=== PATIENT | female | born 1975 ===

== ENCOUNTER 2019-01-26 09:34 | Emergency (ER) | payer MEDICAID, MEDICARE, OTHER ==
[2019-01-26 09:43] VITALS: BMI 22.8
[2019-01-26 09:54] VITALS: RESP 18; TEMP 97.7
--- NOTE | 2019-01-26 10:09 | ED PDOC ---
Arrival/HPI - General Chief Complaint: Abdominal Pain Historian: Patient - History of Present Illness Narrative History of Present Illness (Text): 01/26/19 09:56 43 y/o female, pmh including htn/hypothyroidism/PID with gonorrhea/CVA/fibroid/endometriosis/cervical cancer?/gastric sleeve surgery, nkda, c/o lower quadrant abdominal pain x 5 days. Pt. stated that her period started 01/12/19 and lasted til 01/19/2019, starting having the period again on the 01/21/2019 which ended on 01/23/2019, been having the lower quadrant abdominal pain for the past 5 days, lt. greater than right, admits foul vaginal discharge, stated that this pain is different than her usual pain, no fever or chills, admits nausea/vomiting with pain, no diarrhea, no recent traveling, no vaginal bleeding, no change in vision, no numbness or tingling, no other medical or psychological complaints. Past Medical History - Provider Review Nursing Documentation Reviewed: Yes - Infectious Disease Hx of Infectious Diseases: None - Cardiac Hx Cardiac Arrhythmia: Yes (palpitations) Hx Hypertension: Yes - Pulmonary Hx Respiratory Disorders: No - Neurological Hx Seizures: (denies 07/04/18) - HEENT Hx HEENT Disorder: No - Renal Hx Renal Disorder: No - Endocrine/Metabolic Hx Hypothyroidism: Yes - Hematological/Oncological Hx Anemia: Yes - Integumentary Hx Dermatological Disorder: No - Musculoskeletal/Rheumatological Hx Musculoskeletal Disorders: Yes - Gastrointestinal Hx Gastrointestinal Disorders: Yes Other/Comment: Gastric bypass. Gastric bypass perforation - Genitourinary/Gynecological Hx Genitourinary Disorders: No Other/Comment: Fibroids, Endometriosis - Psychiatric Hx Psychophysiologic Disorder: No Hx Substance Use: No - Surgical History Hx Section: Yes Hx Gastric Bypass Surgery: Yes (and gastric bypass perforation) - Anesthesia Hx Anesthesia: Yes Hx Anesthesia Reactions: No Hx Malignant Hyperthermia: No - Suicidal Assessment Feels Threatened In Home Enviroment: No Family/Social History - Physician Review Nursing Documentation Reviewed: Yes Family/Social History: Unknown Family HX Smoking Status: Never Smoked Hx Alcohol Use: No Hx Substance Use: No Allergies/Home Meds Allergies/Adverse Reactions: Allergies No Known Allergies Allergy (Verified 01/25/19 09:07) Home Medications: Home Meds Medication Instructions Recorded Confirmed Levothyroxine [Synthroid] 0.2 mg PO DAILY 09/11/14 01/26/19 Lisinopril [Prinivil] 10 mg PO DAILY 08/25/16 01/26/19 Naproxen [Naprosyn] 500 mg PO TID PRN 01/24/19 01/26/19 Review of Systems - Review of Systems Constitutional: absent: Fatigue, Fevers Eyes: absent: Vision Changes ENT: absent: Hearing Changes Respiratory: absent: SOB, Cough Cardiovascular: absent: Chest Pain Gastrointestinal: Abdominal Pain, Nausea, Vomiting Genitourinary Female: Vaginal Discharge, Other (pelvic cramp). absent: Dysuria, Frequency, Hematuria, Urine Output Changes, Vaginal Bleeding Musculoskeletal: absent: Arthralgias, Back Pain Skin: absent: Rash, Pruritis Neurological: absent: Headache, Dizziness Psychiatric: absent: Anxiety, Depression, Suicidal Ideation Physical Exam Vital Signs Reviewed: Yes Vital Signs Temp Pulse Resp BP Pulse Ox 01/26/19 09:53 97.7 F 89 18 124/88 99 Temperature: Afebrile Blood Pressure: Normal Pulse: Regular Respiratory Rate: Normal Appearance: Positive for: Well-Appearing, Non-Toxic Pain Distress: Severe Mental Status: Positive for: Alert and Oriented X 3 - Systems Exam Head: Present: Atraumatic, Normocephalic Pupils: Present: PERRL Extroacular Muscles: Present: EOMI Conjunctiva: Present: Normal Mouth: Present: Moist Mucous Membranes Neck: Present: Normal Range of Motion Respiratory/Chest: Present: Clear to Auscultation, Good Air Exchange. No: Respiratory Distress, Accessory Muscle Use Cardiovascular: Present: Regular Rate and Rhythm, Normal S1, S2. No: Murmurs Abdomen: Present: Tenderness (bilateral Lower quadrant), Normal Bowel Sounds. No: Distention, Peritoneal Signs, Rebound, Guarding Genitourinary/Pelvic Exam: Present: Normal External Genitalia, Vaginal Discharge (white thick cottage cheese material and black color discharge. 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 No: Vaginal Bleeding, Vaginal Lesions, Adenexal Tenderness, Adenexal Mass Back: Present: Normal Inspection. No: CVA Tenderness, Midline Tenderness, Paraspinal Tenderness, Pain with Leg Raise, Decubitus Ulcer Upper Extremity: Present: Normal Inspection. No: Cyanosis, Edema Lower Extremity: Present: Normal Inspection. No: Edema Neurological: Present: GCS=15, CN II-XII Intact, Speech Normal, Motor Func Grossly Intact, Normal Cerebellar Funct, Gait Normal, Memory Normal Skin: Present: Warm, Dry, Normal Color. No: Rashes Psychiatric: Present: Alert, Oriented x 3, Normal Insight, Normal Concentration Medical Decision Making ED Course and Treatment: 01/26/19 10:17 Differential including but not limited to: appendicitis/diverticulitis vs. Vaginal candiasis vs. gc/chlamydia vs. PID vs. Tubovarian abscess vs. vs. endometriosis -Labs -CT -Transvaginal sonogram -IVF/toradol -Observe and reassess 01/26/19 15:05 -Urine hcg is negative -UA show no obvious UTI, pt. has no urinary symptoms -Transvaginal sonogram Uterine mass measuring 3.4 cm, likely fibroid. Right ovarian 2.2 cm cyst. -CT abdomen and pelvis Postsurgical changes of the stomach with a likely gastrojejunostomy. Moderate volume of stool throughout the colon. Multiple right adnexal hypodensities, likely ovarian follicles/cysts. L4 vertebral body with a 0.6 cm lucency, nonspecific. -Labs show no acute findings -Diflucan 150mg po ordered for vaginal candidiasis/rocephine/doxycyline 100mg/f lagyl 500mg po ordered. -Pt. feels better, no pain now, offered admission but she declined and she rather to be discharged home. Pt. stated that this pain she is having is very similar to the previous PID, she able to tolerate po solid and fluid, stable for outpatient treatment but advised her to return to the ER for any worsening pain. Pt. stated that she has her own obgyn and pmd next week for follow up, all copies of radiology results and labs given to the patient for her pmd and specialist. -I discussed all the labs/radiology results with the patient, she expressed understanding. Pt. has no lower back pain and no signs of lumbar spine fracture/subluxation. -Magnesium citrate ordered as well. -Discharge home with doxycyline, flagyl, percocet for severe pain, take motrin for mild to moderate pain, copies of radiology and lab results given, follow up with your own pmd and GI/obgyn and orthopedic/neurosurgery within 2 days, return to the ER for any new or worsening signs or symptoms. - RAD Interpretation Radiology Orders: Transvaginal: Date of service: 01/26/2019 HISTORY: LLQ pain. LMP: 01/12/2019 COMPARISON: None available. TECHNIQUE: Grayscale and color Doppler sonographic images were obtained of the pelvis utilizing transvaginal approach. FINDINGS: UTERUS: Anteverted and normal in sizemeasuring 9.8 x 5 x 5.4 cm. Heterogeneous mass noted in the posterior body of the uterus, subserosal, measuring 3.4 cm, likely fibroid. ENDOMETRIUM: Normal in caliber endometrial stripe measures 1.5 cm. CERVIX: No definite cervical abnormality identified. RIGHT OVARY: Measures 4.4 x 4.8 x 2.6 cm. There is a 2.2 cm cyst. Follicles noted. Normal flow. LEFT OVARY: Measures 2.5 x 2.1 x 3 cm. Sonographically unremarkable Normal flow. FREE FLUID: No significant free fluid noted. OTHER FINDINGS: None. IMPRESSION: Uterine mass measuring 3.4 cm, likely fibroid. Right ovarian 2.[address]: Date of service: 01/26/2019 PROCEDURE: CT Abdomen and Pelvis with contrast HISTORY: LLQ/pelvic pain x 5 days, fibroid/endometrio hx COMPARISON: None available. TECHNIQUE: CT scan of the abdomen pelvis was performed after the administration of IV and oral contrast. Coronal and sagittal reconstructions were also acquired. . Radiation dose: Total exam DLP = 434.72 mGy-cm. FINDINGS: LOWER THORAX: Lung bases demonstrate minimal dependent bibasilar atelectasis. Partially visualized bilateral breast implants. Heart is normal in size. LIVER: Unremarkable. GALLBLADDER AND BILE DUCTS: Unremarkable. PANCREAS: Unremarkable. SPLEEN: Unremarkable. ADRENALS: Unremarkable. KIDNEYS AND URETERS: Unremarkable. No hydronephrosis. VASCULATURE: The aorta is normal in caliber. No aortic atherosclerotic calcification or mural plaque present. STOMACH AND BOWEL: Small hiatal hernia. Post surgical changes noted of the stomach. There appears to be gastric bypass with a patent gastrojejunostomy. There is no abnormal small or large bowel dilatation. Anastomotic sutures noted of small bowel. Moderate volume of stool noted throughout the colon. APPENDIX: Normal appendix. PERITONEUM: Unremarkable. No free fluid. No free air. LYMPH NODES: There is no significant abdominal or pelvic lymphadenopathy. BLADDER: Unremarkable. REPRODUCTIVE: Uterine mass noted, likely fibroid. Multiple right adnexal hypodensities, likely ovarian follicles/cysts. BONES: There is a 0.6 cm lucency within the L4 vertebral body. OTHER FINDINGS: None. IMPRESSION: Postsurgical changes of the stomach with a likely gastrojejunostomy. Moderate volume of stool throughout the colon. Multiple right adnexal hypodensities, likely ovarian follicles/cysts. L4 vertebral body with a 0.6 cm lucency, nonspecific. Consider follow up. Additional findings as above. Box Truck Washer: Radiologist - PA / TAKE OUT WAITRESS / Resident Statement MD/DO has reviewed & agrees with the documentation as recorded. Disposition/Present on Arrival - Present on Arrival Any Indicators Present on Arrival: No History of DVT/PE: No History of Uncontrolled Diabetes: No Urinary Catheter: No History of Decub. Ulcer: No History Surgical Site Infection Following: None - Disposition Have Diagnosis and Disposition been Completed?: Yes Diagnosis: Vaginal candidiasis, Abnormal CT of the abdomen, Vaginal discharge, Pelvic pain, Abdominal pain, Constipation, Ovarian cyst, Uterine fibroid Disposition: HOME/ ROUTINE Disposition Time: 15:08 Patient Plan: Discharge Patient Problems: Current Active Problems Problem Status Onset Vaginal candidiasis Acute Condition: IMPROVED Additional Instructions: -Discharge home with doxycyline, flagyl, percocet for severe pain, take motrin for mild to moderate pain, copies of radiology and lab results given, follow up with your own pmd and GI/obgyn and orthopedic/neurosurgery within 2 days, return to the ER for any new or worsening signs or symptoms. Prescriptions: Doxycycline Hyclate 100 mg PO BID #28 capsule metroNIDAZOLE [Flagyl] 500 mg PO BID #28 tab oxyCODONE/Acetaminophen [Percocet 5/325 mg Tab] 1 tab PO TID PRN #12 tab PRN Reason: Other Referrals: Matt Dawson MD [Staff Provider] - Follow up with primary Fredy Olson MD [Staff Provider] - Follow up with primary Richelle Smith MD [Staff Provider] - Follow up with primary Neelam Teixeira MD [Staff Provider] - Follow up with primary [facility] [place] - Follow up with primary Forms: [employer] (Montenegrin), WORK NOTE
[2019-01-26] MEDS ORDERED: Sodium Chloride 0.9% 1,000 ML IV SCH (10:15)
[2019-01-26] MEDS ORDERED: Iohexol 240 (50 ml) ONE (10:41)
[2019-01-26] MEDS ORDERED: Iohexol 350 MG/100 ML VIAL ONE (10:48)
[2019-01-26 10:54] LABS: BASO # 0.01 K/mm3 (0.0-2.0); BASO % 0.1 % (0.0-3.0); EOS % 0.1 % (1.5-5.0); HEMOGLOBIN 10.7 g/dL (12.0-16.0); LYMPH # 1.4 (1.2-3.4); LYMPH % 19.5 % (22.0-35.0); MEAN CORPUSCULAR HEMOGLOBIN 26.2 pg (25.0-35.0); MEAN CORPUSCULAR HGB CONC 29.8 g/dl (31.0-37.0); MEAN PLATELET VOLUME 9.8 fl (7.0-11.0); MONO # 0.8 (0.1-0.6); MONO % 10.4 % (1.0-6.0); RBC 4.08 10^6/uL (3.5-6.1); RED CELL DISTRIBUTION WIDTH 15.4 % (11.5-14.5); WHITE BLOOD COUNT 7.4 10^3/uL (4.5-11.0)
[2019-01-26 11:04] LABS: ALB/GLOB RATIO 1.3 (1.1-1.8); AST/SGOT 18 U/L (14-36); BLOOD UREA NITROGEN 13 mg/dL (7-21); GFR NON-AFRICAN AMERICAN > 60
[2019-01-26 11:10] LABS: ALT/SGPT < 6 U/L (7-56)
[2019-01-26] MEDS ORDERED: Morphine 4 mg/ml ISec IVP STA (12:05)
[2019-01-26 12:08] LABS: PH,URINE 7.5 (4.7-8.0); URINE BILIRUBIN SMALL (NEGATIVE); URINE BLOOD NEGATIVE (NEGATIVE); URINE GLUCOSE (UA) NEGATIVE (NEGATIVE); URINE LEUKOCYTE ESTERASE NEGATIVE Leu/uL (NEGATIVE); URINE PROTEIN 100 mg/dL (<30 mg/dL)
[2019-01-26 12:16] LABS: URINE COLOR YELLOW (YELLOW)
[2019-01-26 12:17] LABS: URINE APPEARANCE SL CLOUDY (CLEAR)
[2019-01-26 12:25] LABS: URINE BACTERIA MANY /hpf; URINE RBC 0 - 2 /hpf (0-2)
[2019-01-26 12:26] LABS: URINE AMORPHOUS SEDIMENT FEW /hpf; URINE COARSE GRANULAR CAST TRACE /hpf; URINE FINE GRANULAR CAST 0 - 2 /hpf
--- NOTE | 2019-01-26 12:36 | US ---
Date of service: 01/26/2019 HISTORY: LLQ pain. LMP: 01/12/2019 COMPARISON: None available. TECHNIQUE: Grayscale and color Doppler sonographic images were obtained of the pelvis utilizing transvaginal approach. FINDINGS: UTERUS: Anteverted and normal in sizemeasuring 9.8 x 5 x 5.4 cm. Heterogeneous mass noted in the posterior body of the uterus, subserosal, measuring 3.4 cm, likely fibroid. ENDOMETRIUM: Normal in caliber endometrial stripe measures 1.5 cm. CERVIX: No definite cervical abnormality identified. RIGHT OVARY: Measures 4.4 x 4.8 x 2.6 cm. There is a 2.2 cm cyst. Follicles noted. Normal flow. LEFT OVARY: Measures 2.5 x 2.1 x 3 cm. Sonographically unremarkable Normal flow. FREE FLUID: No significant free fluid noted. OTHER FINDINGS: None. IMPRESSION: Uterine mass measuring 3.4 cm, likely fibroid. Right ovarian 2.2 cm cyst.
[2019-01-26] MEDS ORDERED: cefTRIAXone (Rocephin) 250 mg Inj IM STA (12:56)
--- NOTE | 2019-01-26 14:30 | CT ---
Date of service: 01/26/2019 PROCEDURE: CT Abdomen and Pelvis with contrast HISTORY: LLQ/pelvic pain x 5 days, fibroid/endometrio hx COMPARISON: None available. TECHNIQUE: CT scan of the abdomen pelvis was performed after the administration of IV and oral contrast. Coronal and sagittal reconstructions were also acquired. . Radiation dose: Total exam DLP = 434.72 mGy-cm. FINDINGS: LOWER THORAX: Lung bases demonstrate minimal dependent bibasilar atelectasis. Partially visualized bilateral breast implants. Heart is normal in size. LIVER: Unremarkable. GALLBLADDER AND BILE DUCTS: Unremarkable. PANCREAS: Unremarkable. SPLEEN: Unremarkable. ADRENALS: Unremarkable. KIDNEYS AND URETERS: Unremarkable. No hydronephrosis. VASCULATURE: The aorta is normal in caliber. No aortic atherosclerotic calcification or mural plaque present. STOMACH AND BOWEL: Small hiatal hernia. Post surgical changes noted of the stomach. There appears to be gastric bypass with a patent gastrojejunostomy. There is no abnormal small or large bowel dilatation. Anastomotic sutures noted of small bowel. Moderate volume of stool noted throughout the colon. APPENDIX: Normal appendix. PERITONEUM: Unremarkable. No free fluid. No free air. LYMPH NODES: There is no significant abdominal or pelvic lymphadenopathy. BLADDER: Unremarkable. REPRODUCTIVE: Uterine mass noted, likely fibroid. Multiple right adnexal hypodensities, likely ovarian follicles/cysts. BONES: There is a 0.6 cm lucency within the L4 vertebral body. OTHER FINDINGS: None. IMPRESSION: Postsurgical changes of the stomach with a likely gastrojejunostomy. Moderate volume of stool throughout the colon. Multiple right adnexal hypodensities, likely ovarian follicles/cysts. L4 vertebral body with a 0.6 cm lucency, nonspecific. Consider follow up. Additional findings as above.
[2019-01-26 14:46] VITALS: BP 135/92; PULSE 78; O2SAT 99
[2019-01-26] MEDS ORDERED: Magnesium Citrate Oral SOL (300 ml) PO ONE (15:04)
== END 2019-01-26 15:15 | disposition home or self-care (01) ==
LOC: ED 09:34
DX: B37.3 Candidiasis of vulva and vagina (principal); D25.9 Leiomyoma of uterus, unspecified; N83.209 Unspecified ovarian cyst, unspecified side; R10.2 Pelvic and perineal pain; K59.00 Constipation, unspecified; R10.9 Unspecified abdominal pain; N89.8 Other specified noninflammatory disorders of vagina; R93.5 Abnormal findings on diagnostic imaging of other abdominal regions, including retroperitoneum; I10 Essential (primary) hypertension; Z98.84 Bariatric surgery status
CPT/HCPCS: 74177; 76830; 80053; 81001; 81025; 83735; 85025; 85651; 87086; 87491; 87591; 96372; 96374; 96375; 99284; J0696; J1885; J2270; J7030; Q9966; Q9967

== ENCOUNTER 2019-02-08 12:41 | Emergency (ER) | payer MEDICAID, MEDICARE, OTHER ==
[2019-02-08 12:42] VITALS: BMI 22.8
[2019-02-08 13:43] VITALS: RESP 18
--- NOTE | 2019-02-08 14:01 | ED PDOC ---
Arrival/HPI - General Chief Complaint: Abdominal Pain Time Seen by Provider: 02/08/19 13:34 Historian: Patient - History of Present Illness Narrative History of Present Illness (Text): 02/08/19 14:01 43 y/o female, whose past medical history includes hypothyroidism, PID with gonorrheal, CVA, fibroid, endometriosis, cervical cancer, gastric sleeve surgery, and chronic pain, presents to the ED for pelvic pain since 5 days. Patient reports PO intake of Naprosyn with no improvement in pain. Patient has previously received pelvic ultrasound and CAT scan, and was subsequently diagnosed with endometriosis. Patient reports vising her special services supervisor today, who referred her to ED. Patient denies any fever, chills, cough, nausea, vomiting, abnormal discharge, irritative symptoms, diarrhea, abdominal pain, dizziness or lightheadedness. Time/Duration: < week Symptom Onset: Gradual Symptom Course: Unchanged Activities at Onset: Light Context: Home Past Medical History - Provider Review Nursing Documentation Reviewed: Yes - Infectious Disease Hx of Infectious Diseases: None - Cardiac Hx Cardiac Arrhythmia: Yes (palpitations) Hx Hypertension: Yes - Pulmonary Hx Respiratory Disorders: No - Neurological Hx Seizures: (denies 07/04/18) - HEENT Hx HEENT Disorder: No - Renal Hx Renal Disorder: No - Endocrine/Metabolic Hx Hypothyroidism: Yes - Hematological/Oncological Hx Anemia: Yes - Integumentary Hx Dermatological Disorder: No - Musculoskeletal/Rheumatological Hx Musculoskeletal Disorders: Yes - Gastrointestinal Hx Gastrointestinal Disorders: Yes Other/Comment: Gastric bypass. Gastric bypass perforation - Genitourinary/Gynecological Hx Genitourinary Disorders: No Other/Comment: Fibroids, Endometriosis - Psychiatric Hx Psychophysiologic Disorder: No Hx Substance Use: No - Surgical History Hx Section: Yes Hx Gastric Bypass Surgery: Yes (and gastric bypass perforation) - Anesthesia Hx Anesthesia: Yes Hx Anesthesia Reactions: No Hx Malignant Hyperthermia: No - Suicidal Assessment Feels Threatened In Home Enviroment: No Family/Social History - Physician Review Nursing Documentation Reviewed: Yes Family/Social History: Unknown Family HX Smoking Status: Never Smoked Hx Alcohol Use: No Hx Substance Use: No Allergies/Home Meds Allergies/Adverse Reactions: Allergies No Known Allergies Allergy (Verified 01/25/19 09:07) Home Medications: Home Meds Medication Instructions Recorded Confirmed Levothyroxine [Synthroid] 0.2 mg PO DAILY 09/11/14 01/26/19 Lisinopril [Prinivil] 10 mg PO DAILY 08/25/16 01/26/19 Naproxen [Naprosyn] 500 mg PO TID PRN 01/24/19 01/26/19 Review of Systems - Physician Review All systems were reviewed & negative as marked: Yes - Review of Systems Constitutional: absent: Fevers Eyes: absent: Vision Changes ENT: absent: Hearing Changes, Sore Throat, Rhinorrhea Respiratory: absent: SOB, Cough Cardiovascular: absent: Chest Pain Gastrointestinal: absent: Abdominal Pain Genitourinary Female: Other (Pelvic pain). absent: Dysuria, Vaginal Bleeding, Vaginal Discharge Musculoskeletal: absent: Back Pain, Neck Pain Skin: absent: Rash Neurological: absent: Headache, Dizziness Endocrine: absent: Diaphoresis, Polyuria Hemo/Lymphatic: absent: Adenopathy Psychiatric: absent: Anxiety, Depression Physical Exam - Physical Exam Narrative Physical Exam (Text): 02/08/19 14:15 Gen: VS reviewed, alert, well developed, well nourished, nontoxic, mild distress ENT: normal pharynx Eye: EOMI, PERRL Neck: no JVD, supple, no adenopathy CV: regular rate, regular rhythm, no rubs, no murmur, no gallops, S1, S2, pulses, equal and strong Pulm: no distress, clear to auscultation, no wheeze, no rhonchi, breath sounds equal, no rales Abd: soft, mild diffused pelvic tenderness, no guarding, no rebound, no rigidity, normal bowel sounds Ext: no edema Skin: good color, no rash, no cyanosis Psych: responds appropriately to questions, normal affect Neuro: oriented x 3, CN2-12 intact grossly, motor intact, sensation intact Vital Signs Reviewed: Yes Vital Signs Temp Pulse Resp BP Pulse Ox 02/08/19 13:24 98.8 F 102 H 18 135/89 98 Temperature: Afebrile Blood Pressure: Normal Pulse: Tachycardic Respiratory Rate: Normal Appearance: Positive for: Well-Appearing, Non-Toxic, Comfortable Pain Distress: Mild Mental Status: Positive for: Alert and Oriented X 3 Medical Decision Making ED Course and Treatment: 02/08/19 14:19 Impression: 43 year old female who presents to the ED for pelvic pain. Plan: -- Labs -- IV Fluids -- Acetaminophen -- Toradol -- Reassess and disposition Progress Notes: 02/08/19 16:32 patient seen for recurrent pelvic painm, extensive diagnostic workup prior reveals uterine fibroids. benign clinical exam, labs ok, no acute imaging indicated at this time. patient instructed to keep her appt with her it architect. - Scribe Statement The provider has reviewed the documentation as recorded by the Nilsonibe Sabino winslow with Nehem[facility]. All medical record entries made by the Scribe were at my direction and personally dictated by me. I have reviewed the chart and agree that the record accurately reflects my personal performance of the history, physical exam, medical decision making, and the department course for this patient. I have also personally directed, reviewed, and agree with the discharge instructions and disposition. Disposition/Present on Arrival - Present on Arrival Any Indicators Present on Arrival: No History of DVT/PE: No History of Uncontrolled Diabetes: No Urinary Catheter: No History of Decub. Ulcer: No History Surgical Site Infection Following: None - Disposition Have Diagnosis and Disposition been Completed?: Yes Diagnosis: Pelvic pain, Uterine fibroid Disposition: HOME/ ROUTINE Disposition Time: 16:39 Patient Plan: Discharge Condition: STABLE Additional Instructions: keep your appointment with the special services supervisor. Prescriptions: Ibuprofen [Motrin Tab] 600 mg PO QID #42 tab Sennosides/Docusate Sodium [Colace 2-in-1 Tablet] 2 each PO BID 7 Days #14 tablet Forms: [employer] (Korean), WORK NOTE
[2019-02-08 15:22] LABS: BASO # 0.02 K/mm3 (0.0-2.0); BASO % 0.4 % (0.0-3.0); EOS % 0.8 % (1.5-5.0); HEMOGLOBIN 11.3 g/dL (12.0-16.0); LYMPH # 0.6 (1.2-3.4); MEAN CELL VOLUME 85.4 fl (80.0-105.0); MEAN CORPUSCULAR HEMOGLOBIN 25.9 pg (25.0-35.0); MEAN CORPUSCULAR HGB CONC 30.3 g/dl (31.0-37.0); MEAN PLATELET VOLUME 8.7 fl (7.0-11.0); MONO # 0.2 (0.1-0.6); MONO % 4.1 % (1.0-6.0); RBC 4.37 10^6/uL (3.5-6.1); RED CELL DISTRIBUTION WIDTH 15.1 % (11.5-14.5); WHITE BLOOD COUNT 4.8 10^3/uL (4.5-11.0)
[2019-02-08 15:35] LABS: BLOOD UREA NITROGEN 19 mg/dL (7-21); CALCIUM 9.1 mg/dL (8.4-10.5); GFR NON-AFRICAN AMERICAN > 60
[2019-02-08] MEDS ORDERED: DiphenhydrAMINE 12.5 mg/5 ml LIQ UD (5 ml) PO STA (16:09)
[2019-02-08 17:25] VITALS: TEMP 98
[2019-02-08 17:26] VITALS: BP 128/76; PULSE 92; O2SAT 99
== END 2019-02-08 17:27 | disposition home or self-care (01) ==
LOC: ED 12:41
DX: D25.9 Leiomyoma of uterus, unspecified (principal); R10.2 Pelvic and perineal pain
CPT/HCPCS: 80048; 81025; 85025; 96374; 99284; J1885

== ENCOUNTER 2019-02-17 12:53 | Emergency (ER) | payer MEDICAID, MEDICARE, OTHER ==
[2019-02-17 13:23] VITALS: BMI 22.8
[2019-02-17 13:32] VITALS: BP 126/78; RESP 18; TEMP 98; O2SAT 97
[2019-02-17 13:34] VITALS: PULSE 88
--- NOTE | 2019-02-17 13:34 | ED PDOC ---
Arrival/HPI - General Chief Complaint: Female Genitourinary Time Seen by Provider: 02/17/19 12:54 - History of Present Illness Narrative History of Present Illness (Text): 43 F w/ hx of endometriosis, fibroids, Gastric sleeve, hypothyroid, PID, CVA, cervical CA and chronic pain p/w pelvic pain. Pt notes pelvic pain for 1.5 weeks, for which she was seen at this hospital on the and . She notes pelvic pain exactly alike previous fibroid /endometriosis pain. She notes intermittent periods last one 1.5 weeks ago and 5 days ago. She notes taking naproxed 1 hour prior to arrival in ED with some mild relief in pain, but states that she could not tolerate her pain so she came to ED. She notes that she had an appointment with her OBGYN Dr. Corral 2d prior but did not go to the appointment because she had to take her to the oncologist office. She notes that she wants percocets and tramadol for home given her pain. She notes that if she does not recieve percocets or opiate medications she would not like any workup done. she otherwise denies any fever, chills or night sweats No abnormal vaginal d/c No fall or trauma No constipation / diarrhea / dark or bloody stool No rashes No chest pain or sob Past Medical History - Infectious Disease Hx of Infectious Diseases: None - Cardiac Hx Cardiac Arrhythmia: Yes (palpitations) Hx Hypertension: Yes - Pulmonary Hx Respiratory Disorders: No - Neurological Hx Seizures: (denies 07/04/18) - HEENT Hx HEENT Disorder: No - Renal Hx Renal Disorder: No - Endocrine/Metabolic Hx Hypothyroidism: Yes - Hematological/Oncological Hx Anemia: Yes - Integumentary Hx Dermatological Disorder: No - Musculoskeletal/Rheumatological Hx Musculoskeletal Disorders: Yes - Gastrointestinal Hx Gastrointestinal Disorders: Yes Other/Comment: Gastric bypass. Gastric bypass perforation - Genitourinary/Gynecological Hx Sexually Transmitted Diseases: Yes (Gonorrhea) - Psychiatric Hx Psychophysiologic Disorder: No Hx Substance Use: No - Surgical History Hx Section: Yes Hx Gastric Bypass Surgery: Yes (and gastric bypass perforation) - Anesthesia Hx Anesthesia: Yes Hx Anesthesia Reactions: No Hx Malignant Hyperthermia: No - Suicidal Assessment Feels Threatened In Home Enviroment: No Family/Social History Family/Social History: Unknown Family HX Smoking Status: Never Smoked Hx Alcohol Use: No Hx Substance Use: No Allergies/Home Meds Allergies/Adverse Reactions: Allergies No Known Allergies Allergy (Verified 02/09/19 11:14) Home Medications: Home Meds Medication Instructions Recorded Confirmed Levothyroxine [Synthroid] 0.2 mg PO DAILY 09/11/14 02/09/19 Lisinopril [Prinivil] 10 mg PO DAILY 08/25/16 02/09/19 Review of Systems - Review of Systems Constitutional: absent: Fatigue, Weight Change, Fevers Eyes: absent: Vision Changes, Eye Pain ENT: absent: Sore Throat Respiratory: absent: SOB, Cough Cardiovascular: absent: Chest Pain, Palpitations, Edema Gastrointestinal: absent: Abdominal Pain, Stool Changes, Constipation, Diarrhea, Nausea, Vomiting, Appetite Changes, Hematochezia, Hematemesis, Anorexia Genitourinary Female: Other (pelvic pain feels like her fibroids / endometriosis). absent: Dysuria, Urine Output Changes, Vaginal Discharge Musculoskeletal: absent: Back Pain, Neck Pain Skin: absent: Rash Neurological: absent: Headache Endocrine: absent: Diaphoresis Hemo/Lymphatic: absent: Adenopathy Psychiatric: absent: Anxiety, Depression, Suicidal Ideation Physical Exam Vital Signs Reviewed: Yes Vital Signs Temp Pulse Resp BP Pulse Ox 02/17/19 12:53 98 F 88 18 126/78 97 Temperature: Afebrile Blood Pressure: Normal Pulse: Regular Respiratory Rate: Normal Appearance: Positive for: Well-Appearing Pain Distress: None Mental Status: Positive for: Alert and Oriented X 3 - Systems Exam Head: Present: Atraumatic, Normocephalic Pupils: Present: PERRL Extroacular Muscles: Present: EOMI Conjunctiva: Present: Normal Mouth: Present: Moist Mucous Membranes. No: Dry Pharnyx: Present: Normal. No: ERYTHEMA, EXUDATE Nose (External): Present: Atraumatic Nose (Internal): Present: Normal Inspection Neck: Present: Normal Range of Motion. No: Meningeal Signs, MIDLINE TENDERNESS Respiratory/Chest: Present: Clear to Auscultation, Good Air Exchange Cardiovascular: Present: Regular Rate and Rhythm, Normal S1, S2. No: Murmurs Abdomen: Present: Tenderness (suprapubic), Normal Bowel Sounds. No: Distention, Peritoneal Signs, Rebound, Guarding, McBurney's Point Tender, Rovsing's Sign Present Back: Present: Normal Inspection. No: CVA Tenderness, Midline Tenderness Upper Extremity: Present: Normal Inspection, Normal ROM. No: Cyanosis, Edema Lower Extremity: Present: Normal Inspection, Normal ROM. No: Edema Neurological: Present: GCS=15, Speech Normal, Motor Func Grossly Intact, Normal Sensory Function Skin: Present: Warm, Dry Lymphatic: No: Cervical Adenopathy Psychiatric: Present: Alert, Oriented x 3, Normal Insight. No: Anxious, Agitated, Depressed Mood, Suicidal Ideation, Homicidal Ideation, Delusional Medical Decision Making ED Course and Treatment: 43 F w/ hx of endometriosis, fibroids, Gastric sleeve, hypothyroid, PID, CVA, cervical CA and chronic pain p/w pelvic pain. Pt has been seen previously for same exact pelvic pain per pt and has had extensive workup only remarkable for endometriosis and fibroids. She denies an vaginal d/c, rash or PID similiar type pain. Pt is in NAD on exam, with only mild suprapubic pain. No signs of rash per pt or history of trauma or fall. No back pain, no abnl back exam, no meningeal signs or si / hi or depression / anxiety or hallucinations. Pt is requesting opiate pain meds and given well appearance, largely benign exam, normal vitals- I reccomended starting tylenol first. Pt endorsed to me that she only wants opiate pain medications at this time and that if she was not to recieve opiate pain meds for home or for here she would like to leave. I endorsed that we would do labs and ultrasound and i could not promise her opiate pain medications. She endorsed she would like to sign out AMA. Given normal neuro exam, good capacity i went to retrieve AMA forms- Pt then eloped. Disposition/Present on Arrival - Present on Arrival Any Indicators Present on Arrival: No History of DVT/PE: No History of Uncontrolled Diabetes: No Urinary Catheter: No History of Decub. Ulcer: No History Surgical Site Infection Following: None - Disposition Have Diagnosis and Disposition been Completed?: Yes Diagnosis: Pelvic pain, Drug-seeking behavior Disposition: ELOPEMENT - ER ONLY Disposition Time: 13:45 Condition: STABLE Forms: [employer] (Pashto)
== END 2019-02-17 13:37 | disposition left against medical advice (07) ==
LOC: ED 12:53
DX: R10.2 Pelvic and perineal pain (principal); Z76.5 Malingerer [conscious simulation]; I10 Essential (primary) hypertension; E03.9 Hypothyroidism, unspecified; Z86.73 Personal history of transient ischemic attack (TIA), and cerebral infarction without residual deficits

== ENCOUNTER 2019-04-09 16:10 | Emergency (ER) | payer OTHER ==
[2019-04-09 16:10] VITALS: BMI 22.8
[2019-04-09 16:20] VITALS: BP 155/86; PULSE 86; RESP 18; TEMP 98.2; O2SAT 97
--- NOTE | 2019-04-09 16:33 | ED PDOC ---
Arrival/HPI - History of Present Illness Narrative History of Present Illness (Text): 04/09/19 16:33 CC: pelvic pain HPI: 43 yo female w/ PMH of hx endometriosis, fibroids, Gastric sleeve, hypothyroid, PID, CVA, cervical CA and chronic pain p/w pelvic pain. Patient states the pain started yesterday in the pelvic region, described as a stabbing pain, not relieved with Tramadol her pcp prescribed her. Patient states that she has not been able to followup with [facility] due to insurance reasons. The pain continued to worsen today prompting the patient to come to the hospital. Patient has been to this hospital many times requesting opiates and leaving AMA or eloping if her wishes not granted. [facility] was checked for patient and it was evident that patient has been frequenting doctors for tramadol scripts. Admits to pelvic pain. Denies fevers, chills, chest pain, sob, n/v, constipation or diarrhea, and dysuria. Time/Duration: 24 hours Symptom Onset: Sudden Symptom Course: Collicky Quality: Stabbing Severity Level: 10 Activities at Onset: Rest <William Ignacio - Last Filed: 04/09/19 18:30> <Bal Eller - Last Filed: 04/09/19 20:27> - General Chief Complaint: Female Genitourinary Time Seen by Provider: 04/09/19 16:16 Past Medical History - Provider Review Nursing Documentation Reviewed: Yes - Infectious Disease Hx of Infectious Diseases: None - Reproductive Menopause: No - Cardiac Hx Cardiac Arrhythmia: Yes (palpitations) Hx Hypertension: Yes - Pulmonary Hx Respiratory Disorders: No - Neurological Hx Seizures: (denies 07/04/18) - HEENT Hx HEENT Disorder: No - Renal Hx Renal Disorder: No - Endocrine/Metabolic Hx Hypothyroidism: Yes - Hematological/Oncological Hx Anemia: Yes - Integumentary Hx Dermatological Disorder: No - Musculoskeletal/Rheumatological Hx Musculoskeletal Disorders: Yes - Gastrointestinal Hx Gastrointestinal Disorders: Yes Other/Comment: Gastric bypass. Gastric bypass perforation - Genitourinary/Gynecological Hx Sexually Transmitted Diseases: Yes (Gonorrhea) - Psychiatric Hx Psychophysiologic Disorder: No Hx Substance Use: No - Surgical History Hx Section: Yes Hx Gastric Bypass Surgery: Yes (and gastric bypass perforation) - Anesthesia Hx Anesthesia: Yes Hx Anesthesia Reactions: No Hx Malignant Hyperthermia: No - Suicidal Assessment Feels Threatened In Home Enviroment: No <William Ignacio - Last Filed: 04/09/19 18:30> Family/Social History - Physician Review Nursing Documentation Reviewed: Yes Family/Social History: No Known Family HX Smoking Status: Never Smoked Hx Alcohol Use: No Hx Substance Use: No <William Ignacio - Last Filed: 04/09/19 18:30> Allergies/Home Meds <William Ignacio - Last Filed: 04/09/19 18:30> <Bal Eller - Last Filed: 04/09/19 20:27> Allergies/Adverse Reactions: Allergies No Known Allergies Allergy (Verified 02/09/19 11:14) Home Medications: Home Meds Medication Instructions Recorded Confirmed Levothyroxine [Synthroid] 0.2 mg PO DAILY 09/11/14 04/09/19 Lisinopril [Prinivil] 10 mg PO DAILY 08/25/16 04/09/19 Review of Systems - Review of Systems Constitutional: Normal. absent: Fatigue, Weight Change Eyes: Normal. absent: Vision Changes, Photophobia ENT: Normal. absent: Hearing Changes Respiratory: Normal. absent: SOB, Cough Cardiovascular: Normal, Palpitations. absent: Chest Pain Gastrointestinal: Normal. absent: Abdominal Pain, Nausea, Vomiting Genitourinary Female: Other (pelvic pain). absent: Dysuria, Frequency, Hematuria Musculoskeletal: Normal. absent: Arthralgias, Back Pain, Neck Pain Skin: Normal. absent: Rash, Pruritis Neurological: Normal. absent: Headache, Dizziness Endocrine: Normal. absent: Diaphoresis, Polyuria Psychiatric: Normal. absent: Anxiety, Depression <William Ignacio - Last Filed: 04/09/19 18:30> Physical Exam Vital Signs Reviewed: Yes Vital Signs Temp Pulse Resp BP Pulse Ox 04/09/19 16:19 98.2 F 86 18 155/86 H 97 Temperature: Afebrile Blood Pressure: Hypertensive Pulse: Regular Respiratory Rate: Normal Appearance: Positive for: Well-Appearing, Non-Toxic, Comfortable Pain Distress: None Mental Status: Positive for: Alert and Oriented X 3 - Systems Exam Head: Present: Atraumatic, Normocephalic Pupils: Present: PERRL Extroacular Muscles: Present: EOMI Conjunctiva: Present: Normal Mouth: Present: Moist Mucous Membranes Neck: Present: Normal Range of Motion. No: Meningeal Signs, JVD Respiratory/Chest: Present: Clear to Auscultation, Good Air Exchange. No: Respiratory Distress, Accessory Muscle Use, Wheezes Cardiovascular: Present: Regular Rate and Rhythm, Normal S1, S2. No: Murmurs, Tachycardic Abdomen: Present: Tenderness, Normal Bowel Sounds. No: Distention, Peritoneal Signs Upper Extremity: Present: Normal Inspection. No: Cyanosis, Edema Lower Extremity: Present: Normal Inspection. No: Edema Neurological: Present: GCS=15, CN II-XII Intact. No: Speech Normal Skin: Present: Warm, Dry, Normal Color. No: Rashes Psychiatric: Present: Alert, Oriented x 3, Normal Insight, Normal Concentration <William Ignacio - Last Filed: 04/09/19 18:30> Vital Signs Temp Pulse Resp BP Pulse Ox 04/09/19 16:19 98.2 F 86 18 155/86 H 97 <Bal Eller - Last Filed: 04/09/19 20:27> Medical Decision Making ED Course and Treatment: 04/09/19 16:59 Impression 43 yo hx of endometriosis, fibroids, Gastric sleeve, hypothyroid, PID, CVA, cervical CA and chronic pain p/w pelvic pain. Plan -CBC -CMP -Transvag US -IV toradol -U/A with urine cx Prior Visits All prior documentation and lab work reviewed prior to this evaluation Progress Notes Of note patient has been to [facility] ER multiple times with similar complaints Patient is exhibiting classic drug seeking behavior [facility] was checked online and patient has had over 180 tablets of tramadol prescribed this past few days pending blood work and imaging results 04/09/19 18:30 Patient asked for pain medicine again as her pain not well controlled. Patient not tachycardic and has been seen walking comfortably Patient asked for AMA paperwork when she was informed that she would not get opiate for pain control Patient was informed that she has been prescribed 180 pills of tramadol that she can take for pain control Patient wanted to sign AMA paperwork immediately afterwards Re-evaluation Time: 18:32 Reassessment Condition: Re-examined, Unchanged - Lab Interpretations Lab Results: 04/09/19 16:52 Lab Results 04/09/19 16:52: WBC 4.2 L, RBC 4.18, Hgb 10.6 L, Hct 35.4 L, MCV 84.7, MCH 25.4, MCHC 29.9 L, RDW 15.4 H, Plt Count 189, MPV 9.6, Neut % (Auto) 61.9, Lymph % (Auto) 24.3, Sumner % (Auto) 9.9 H, Eos % (Auto) 3.4, Baso % (Auto) 0.5, Lymph # (Auto) 1.0 L, Sumner # (Auto) 0.4, Eos # (Auto) 0.1, Baso # (Auto) 0.02, Absolute Neuts (auto) 2.58 I have reviewed the lab results: Yes Interpretation: No sign. chg./baseline <William Ignacio - Last Filed: 04/09/19 18:30> - Lab Interpretations Lab Results: Total Bilirubin 0.4 mg/dL (0.2-1.3) 04/09/19 16:52 AST 24 U/L (14-36) 04/09/19 16:52 ALT 11 U/L (7-56) 04/09/19 16:52 Alkaline Phosphatase 81 U/L (38-126) 04/09/19 16:52 Total Protein 7.3 g/dL (5.8-8.3) 04/09/19 16:52 Albumin 4.1 g/dL (3.0-4.8) 04/09/19 16:52 Globulin 3.2 gm/dL 04/09/19 16:52 Albumin/Globulin Ratio 1.3 (1.1-1.8) 04/09/19 16:52 Urine Color Yellow (YELLOW) 04/09/19 17:15 Urine Appearance Clear (CLEAR) 04/09/19 17:15 Urine pH 6.5 (4.7-8.0) 04/09/19 17:15 Ur Specific George 1.015 (1.005-1.035) 04/09/19 17:15 Urine Protein Negative mg/dL (<30 mg/dL) 04/09/19 17:15 Urine Glucose (UA) Negative mg/dL (NEGATIVE) 04/09/19 17:15 Urine Ketones Trace mg/dL (NEGATIVE) H 04/09/19 17:15 Urine Blood Negative (NEGATIVE) 04/09/19 17:15 Urine Nitrate Negative (NEGATIVE) 04/09/19 17:15 Urine Bilirubin Negative (NEGATIVE) 04/09/19 17:15 Urine Urobilinogen 1.0 E.U./dL (<1 E.U./dL) H 04/09/19 17:15 Ur Leukocyte Esterase Trace Angely/uL (NEGATIVE) H 04/09/19 17:15 Urine RBC TEST NOT PERFORMED 04/09/19 17:15 Urine WBC 0 - 2 /hpf (0-6) 04/09/19 17:15 Ur Epithelial Cells 4 - 5 /hpf (0-5) 04/09/19 17:15 - RAD Interpretation Radiology Orders: 04/09/19 16:48 TRANSVAGINAL [US] Stat - Medication Orders Current Medication Orders: Discontinued Medications Ketorolac Tromethamine (Toradol) 30 mg IVP STAT STA Stop: 04/09/19 16:54 Last Admin: 04/09/19 17:30 Dose: 30 mg MAR Pain Assessment Document 04/09/19 17:30 MA (Rec: 04/09/19 17:30 MA [id number]) Pain Reassessment Is this a pain reassessment? Yes Sleep Is patient sleeping during reassessment? No Presence of Pain Presence of Pain Yes Pain Scale Used Protocol: PSCALES Pain Scale Used Numeric Location Pain Location Body Site Groin Description Description Constant Intensity of Pain at present 8 Aggravating Factors Changing Position IVP Administration Document 04/09/19 17:30 MA (Rec: 04/09/19 17:30 MA [id number]) Charges for Administration # of IVP Administrations 1 <Bal Eller - Last Filed: 04/09/19 20:27> - PA / OENOLOGIST / Resident Statement YOJANA has reviewed & agrees with the documentation as recorded. YOJANA has examined the patient and agrees with the treatment plan. <Bal Eller - Last Filed: 04/09/19 20:27> Disposition/Present on Arrival - Present on Arrival Any Indicators Present on Arrival: No History of DVT/PE: No History of Uncontrolled Diabetes: No Urinary Catheter: No History of Decub. Ulcer: No History Surgical Site Infection Following: None - Disposition Have Diagnosis and Disposition been Completed?: Yes Disposition Time: 18:32 <William Ignacio - Last Filed: 04/09/19 18:30> <Bal Eller - Last Filed: 04/09/19 20:27> - Disposition Diagnosis: Endometriosis Disposition: AGAINST MEDICAL ADVICE Condition: FAIR Additional Instructions: MARCELINA BILLS, thank you for letting us take care of you today. The emergency medical care you received today was directed at your acute symptoms. If you were prescribed any medication, please fill it and take as directed. It may take several days for your symptoms to resolve. Return to the Emergency Department if your symptoms worsen, do not improve, or if you have any other problems. Please contact your doctor or call one of the physicians/clinics you have been referred to that are listed on the Patient Visit Information form that is included in your discharge packet. Bring any paperwork you were given at discharge with you along with any medications you are taking to your follow up visit. Our treatment cannot replace ongoing medical care by a primary care provider outside of the emergency department. Thank you for allowing the [facility] team to be part of your care today. YOU SIGNED OUT AGAINST MEDICAL ADVISE. FOLLOW UP WITH YOUR FILM COATER DOCTOR OR YOUR PRIMARY CARE DOCTOR SOON POSSIBLE. Return to the emergency room if you have any concerns. Referrals: FAMILY PROVIDER,NO [Non-Staff] - Follow up with primary Forms: [facility] ([place])
[2019-04-09 17:32] LABS: BASO # 0.02 K/mm3 (0.0-2.0); BASO % 0.5 % (0.0-3.0); EOS # 0.1 (0.0-0.7); EOS % 3.4 % (1.5-5.0); HEMOGLOBIN 10.6 g/dL (12.0-16.0); LYMPH % 24.3 % (22.0-35.0); MEAN CELL VOLUME 84.7 fl (80.0-105.0); MEAN CORPUSCULAR HEMOGLOBIN 25.4 pg (25.0-35.0); MEAN CORPUSCULAR HGB CONC 29.9 g/dl (31.0-37.0); MEAN PLATELET VOLUME 9.6 fl (7.0-11.0); MONO # 0.4 (0.1-0.6); MONO % 9.9 % (1.0-6.0); RBC 4.18 10^6/uL (3.5-6.1); RED CELL DISTRIBUTION WIDTH 15.4 % (11.5-14.5); WHITE BLOOD COUNT 4.2 10^3/uL (4.5-11.0)
[2019-04-09 19:00] LABS: PH,URINE 6.5 (4.7-8.0); URINE BILIRUBIN NEGATIVE (NEGATIVE); URINE BLOOD NEGATIVE (NEGATIVE); URINE GLUCOSE (UA) NEGATIVE (NEGATIVE); URINE LEUKOCYTE ESTERASE TRACE Leu/uL (NEGATIVE); URINE PROTEIN NEGATIVE mg/dL (<30 mg/dL)
[2019-04-09 19:03] LABS: ALB/GLOB RATIO 1.3 (1.1-1.8); ALBUMIN 4.1 g/dL (3.0-4.8); ALT/SGPT 11 U/L (7-56); AST/SGOT 24 U/L (14-36); BLOOD UREA NITROGEN 12 mg/dL (7-21); CALCIUM 8.9 mg/dL (8.4-10.5); GFR NON-AFRICAN AMERICAN > 60
[2019-04-09 19:11] LABS: URINE APPEARANCE CLEAR (CLEAR); URINE COLOR YELLOW (YELLOW)
[2019-04-09 19:20] LABS: URINE WBC 0 - 2 /hpf (0-6)
--- NOTE | 2019-04-10 10:02 | US ---
Date of service: 04/09/2019 HISTORY: pelvic pain COMPARISON: None available. TECHNIQUE: Transvaginal and transabdominal pelvic ultrasound was performed with longitudinal and transverse images submitted for interpretation. FINDINGS: UTERUS: Measures 9.8 x 6.2 x 6.8 cm. Uterus is [id number] enlarged with mildly heterogeneous echotexture identified. A solitary fibroid is identified at the left paracentral postero-inferior body, also heterogeneous but predominantly hypoechoic. Limited shadowing seen related to the fibroid which measures 3.0 x 2.2 x 3.6 cm and bridges submucous and sub serosal spaces. ENDOMETRIUM: Measures 7.2 mm in diameter. Unremarkable. CERVIX: No cervical abnormality identified. RIGHT OVARY: Measures 4.0 x 2.8 x 2.8 cm. No solid mass. Normal flow. A small developing follicle measures 1.4 cm with the right ovary otherwise unremarkable. LEFT OVARY: Measures 3.6 x 2.0 x 3.8 cm. No solid mass. A small complex cyst measures 1.5 x 1.3 x 1.0 cm with the left ovary otherwise remarkable only for small subcentimeter developing follicle. FREE FLUID: No significant free fluid noted. OTHER FINDINGS: None. IMPRESSION: 1. Afnl-[id number] enlarged uterus with solitary posterior body fibroid measuring 3.6 cm greatest dimension bridging both subserosal and sub serosal spaces. 2. Small left ovarian complex cyst 1.5 cm greatest dimension with infrequent small follicles otherwise identified at bilateral ovaries. Preliminary report provided by Raj, 04/09/2019, 7:04 p.m..
== END 2019-04-09 18:53 | disposition left against medical advice (07) ==
LOC: ED 16:10
DX: N80.9 Endometriosis, unspecified (principal); I10 Essential (primary) hypertension; D64.9 Anemia, unspecified; E03.9 Hypothyroidism, unspecified; N73.9 Female pelvic inflammatory disease, unspecified; Z85.41 Personal history of malignant neoplasm of cervix uteri; Z98.84 Bariatric surgery status
CPT/HCPCS: 76830; 80053; 81001; 81025; 85025; 87086; 87181; 96374; 99284; J1885